=== PATIENT | female | born 1950 | race Two or more races ===

== ENCOUNTER 2018-04-14 10:41 | Outpatient (CLI) | payer OTHER | END 2018-04-14 10:49 | disposition home or self-care (01) | LOC: SONOGRAMA 10:41 | DX: N60.11 Diffuse cystic mastopathy of right breast (principal); N60.12 Diffuse cystic mastopathy of left breast; N63.11 Unspecified lump in the right breast, upper outer quadrant ==

== ENCOUNTER 2022-06-04 07:20 | Outpatient (CLI) | payer OTHER | END 2022-06-04 07:28 | disposition home or self-care (01) | LOC: NUCLEAR 07:20 | PROVIDERS: ATTEND Internal Medicine | DX: I25.2 Old myocardial infarction (principal); Z88.8 Allergy status to other drugs, medicaments and biological substances ==

== ENCOUNTER 2023-03-08 10:10 | Inpatient (IN) | payer OTHER ==
[~2023-03-08] VITALS: Ht 165.1 cm; Wt 90.7 kg
[2023-03-08] MEDS ORDERED: DIAZOXIDE (10:16)
[2023-03-08] MEDS ORDERED: METFORMIN HCL1000 M2 (10:16)
[2023-03-08] MEDS ORDERED: ELIQUIS5 MG (10:16)
[2023-03-08] MEDS ORDERED: TOPROL XL50 M1 (10:16)
[2023-03-08] MEDS ORDERED: GLIMEPIRIDE1 MG (10:16)
[2023-03-08] MEDS ORDERED: LIPITOR40 M1 (10:17)
[2023-03-08] MEDS ORDERED: SYNTHROID50 MCG (10:17)
[2023-03-08] MEDS ORDERED: PROZAC40 MG (10:17)
[2023-03-10] MEDS ORDERED: AMIODARONE HCL200 MG (15:36)
[2023-03-10] MEDS ORDERED: TRIAMTERENE-HC1 EAC3 (15:37)
== END 2023-03-21 20:03 | DRG 481 ==
LOC: ER 10:10 → SURH 17:25 → SEC-K 17:25 → SURH 03-09 09:57
PROVIDERS: Orthopaedic Surgery; ADMIT Specialist; ATTEND Specialist
PROC: 0QU70JZ Supplement Left Upper Femur with Synthetic Substitute, Open Approach (ICD-10-PCS; 2023-03-10)
PROC: 0QS704Z Reposition Left Upper Femur with Internal Fixation Device, Open Approach (ICD-10-PCS; principal; 2023-03-10 07:00)
PROC: 30233N1 Transfusion of Nonautologous Red Blood Cells into Peripheral Vein, Percutaneous Approach (ICD-10-PCS; 2023-03-11)
PROC: 4A12X4Z Monitoring of Cardiac Electrical Activity, External Approach (ICD-10-PCS; 2023-03-15)
PROC: BW24YZZ Computerized Tomography (CT Scan) of Chest and Abdomen using Other Contrast (ICD-10-PCS; 2023-03-15)
PROC: B24BYZZ Ultrasonography of Heart with Aorta using Other Contrast (ICD-10-PCS; 2023-03-15)
DX: S72.22XA Displaced subtrochanteric fracture of left femur, initial encounter for closed fracture (principal); M80.052A Age-related osteoporosis with current pathological fracture, left femur, initial encounter for fracture; M97.02XA Periprosthetic fracture around internal prosthetic left hip joint, initial encounter; N39.0 Urinary tract infection, site not specified; B96.20 Unspecified Escherichia coli [E. coli] as the cause of diseases classified elsewhere; W19.XXXA Unspecified fall, initial encounter; Y93.9 Activity, unspecified; Y92.009 Unspecified place in unspecified non-institutional (private) residence as the place of occurrence of the external cause; Y99.9 Unspecified external cause status; I10 Essential (primary) hypertension; E11.9 Type 2 diabetes mellitus without complications; E03.9 Hypothyroidism, unspecified; Z79.4 Long term (current) use of insulin; D64.9 Anemia, unspecified
CPT/HCPCS: 71275